=== PATIENT | male | born 1980 | race Caucasian/White ===

== ENCOUNTER 2021-10-24 11:29 | Outpatient (CLI) | payer OTHER, SELFPAY ==
--- NOTE | 2021-10-24 11:39 | RAD_ITS ---
STUDY: X-RAY CHEST REASON FOR EXAM: Male, 40 years old. Dyspnea TECHNIQUE: Single AP portable view of the chest. COMPARISON: None. FINDINGS: Mild prominence of the pulmonary vasculature. No focal infiltrate is seen. There is no demonstrated pleural abnormality. Mild to moderate enlargement of the cardiac silhouette. Normal mediastinum and brittny. Normal visualized pulmonary arteries. Normal visualized aortic arch and descending thoracic aorta. No demonstrated acute osseous changes. There is no demonstrated abnormality of the visualized soft tissue structures of the upper abdomen. RAD/Chest PA and Lateral IMPRESSION: Cardiomegaly and mild pulmonary venous congestion. Electronically Signed: Rashard Yanez, at 13:38 EST ,
[2021-10-24 12:30] LABS: Absolute Lymphocyte Count 2.54 X10^3/uL (0.83-4.51); Absolute Neutrophil Count 3.7 X10^3/uL (2.0-7.7); Basophil# 0.04 X10^3/uL; Basophil% 0.5 % (0-1); Eosinophil# 0.13 X10^3/uL; Eosinophils% 1.8 % (0-5); Hematocrit 49.7 % (40-54); Hemoglobin 16.9 g/dL (13.0-16.5); Lymphocyte # 2.54 X10^3/ul (0.83-4.51); Lymphocyte % 34.9 % (19-41); Mean Corpuscular Hgb 31.6 pg (27.0-32.0); Mean Corpuscular Volume 93.1 fL (80-94); Mean Platelet Vol. 10.5 fl (6.2-12.0); Monocyte# 0.84 X10^3/uL; Monocyte% 11.5 % (0-10); NRBC Flagged by Analyzer 0 % (0-5); Neutrophil # 3.69 X10^3/uL (2.7-7.7); Neutrophil % 50.8 % (47-70); Platelet Count 225 K/mm3 (150-450); RBC Distribution Width CV 13.1 % (11.6-14.6); RBC Distribution Width SD 44.9 fl (35.1-43.9); Red Blood Count 5.34 M/mm3 (4.6-6.2); White Blood Count 7.3 K/mm3 (4.4-11.0)
[2021-10-24 12:51] LABS: Hemoglobin A1c 5.8 % (3.8-5.6)
[2021-10-24 12:56] LABS: ALB/GLOB Ratio 0.9 RATIO (0.9-2.4); AST(SGOT) 55 U/L (15-37); Alanine Aminotransfer ALT/SGPT 102 U/L (16-61); Albumin, Serum 3.6 g/dL (3.2-5.0); Alkaline Phosphatase 56 U/L (45-117); Anion Gap 3 (5-15); BUN 16 mg/dL (7-18); Calcium,Total 9.2 mg/dL (8.5-10.1); Chloride 104 mmol/L (98-107); Cholesterol 227 mg/dL (200); EST Glomerular Filtration Rate 87 mL/min (>60); Est Glom Filt Rate - Afr Amer 105 mL/min (>60); Free T3 2.9 pg/mL (2.18-3.98); Globulin 3.8 g/dL (2.2-4.2); Glucose 92 mg/dL (74-106); High Density Lipoprotein 33 mg/dL; PSA,Total - Annual Screen 0.27 ng/mL (0.00-4.00); Protein, Total 7.4 g/dL (6.4-8.2); Sodium Level 137 mmol/L (136-145); T4 Free Direct 0.74 ng/dL (0.76-1.46); T4 Total, Thyroxin 5.5 ug/dL (4.5-12.1); Thyroid Stim Hormone (TSH) 2.77 uIU/mL (0.358-3.74); Triglycerides 273 mg/dL; Very Low Density Lipoprotein 55 mg/dL (5-40)
[2021-10-26 08:28] LABS: Vitamin B12 689 pg/mL (211-911); Vitamin D,25 Hydroxy 10.9 ng/mL
== END 2021-10-24 23:59 | disposition home or self-care (01) ==
LOC: RAD 11:34
PROVIDERS: PCP Nurse Practitioner Family; Referring Provider Nurse Practitioner Family; Visit Provider Nurse Practitioner Family
DX: R06.00 Dyspnea, unspecified (principal); E66.01 Morbid (severe) obesity due to excess calories; U09.9 Post COVID-19 condition, unspecified; R53.83 Other fatigue
CPT/HCPCS: 71046; 80053; 80061; 82306; 82607; 83036; 84153; 84436; 84439; 84443; 84481; 85025; G0103

== ENCOUNTER 2021-10-28 15:15 | Outpatient (REF) | payer OTHER, SELFPAY ==
[2021-10-28 16:28] LABS: Homocysteine 4.6 umol/L (3.2-10.7)
[2021-10-30 22:19] LABS: Thyroglobulin Antibody < 1.0 IU/mL (0.0-0.9); Thyroid Peroxidase AB < 8 IU/mL (0-34)
== END 2021-10-28 23:59 | disposition home or self-care (01) ==
LOC: LABSPEC 15:15
PROVIDERS: PCP Nurse Practitioner Family; Visit Provider Nurse Practitioner Family
DX: E03.9 Hypothyroidism, unspecified (principal)
CPT/HCPCS: 83090; 86376; 86800

== ENCOUNTER 2021-11-20 09:08 | Outpatient (CLI) | payer OTHER, SELFPAY ==
--- NOTE | 2021-11-20 09:10 | ECHOCS_ITS ---
Reason For Study: MURMUR Procedure This was a 2D Doppler, Color Flow transthoracic echocardiogram. The study was technically difficult. Due to body habitus. Contrast injection was performed. Exam performed in department. Left Ventricle Based upon the 2D echocardiographic and contrast enhanced images obtained there appears to be grossly normal left ventricular size, wall motion, and systolic function. The estimated ejection fraction is 55 %. Diastolic function is indeterminate. Right Ventricle Based upon the 2D echocardiographic images obtained there appears to be grossly normal right ventricular size and systolic function. Atria Grossly normal-appearing left atrium. Grossly normal-appearing right atrium. Normal atrial septum. Mitral Valve There is mild mitral annular calcification. Tension of the mitral annular calcification onto the base of the posterior mitral valve leaflet. Mild focal mitral valve calcification of the anterior leaflet. Trivial mitral valve insufficiency. Tricuspid Valve Normal tricuspid valve. Trivial tricuspid valve insufficiency. Unable to estimate RV systolic pressure/pulmonary artery pressure due to technically difficult study. Aortic Valve Based upon the 2D echocardiographic images obtained the aortic valve leaflets are not well visualized, however, there appears to be mild focal thickening and based upon the spectral Doppler information obtained there appears to be findings compatible with mild aortic valve stenosis. Pulmonic Valve The pulmonic valve is not well visualized. Great Vessels Normal sized aortic root. Pericardium/Pleural No pericardial effusion. Medication 22 gauge I.V. with prn adaptor inserted into right arm. Diluted definity 3.0ml given slow IV push to enhance endocardial definition. MMode/2D Measurements & Calculations LVOT diam: 2.3 cm Ao root diam: 3.1 cm LVOT area: 4.1 cm2 Time Measurements MV dec time: 0.16 sec Doppler Measurements & Calculations MV E max agustin: 80.0 cm/sec Lat Peak E' Agustin: 5.6 cm/sec Med Peak E' Agustin: 5.6 cm/sec MV A max agustin: 53.7 cm/sec E/E' lat: 14.3 E/E' med: 14.4 MV E/A: 1.5 Ao V2 max: 317.3 cm/sec LV V1 max: 106.5 cm/sec SV(LVOT): 97.4 ml Ao max P.6 mmHg LV V1 max P.5 mmHg Ao V2 mean: 198.0 cm/sec LV V1 mean P.2 mmHg Ao mean P.5 mmHg LV V1 mean: 69.6 cm/sec Ao V2 VTI: 55.0 cm LV V1 VTI: 23.6 cm LILLY(I,D): 1.8 cm2 LILLY(V,D): 1.4 cm2 PA V2 max: 78.6 cm/sec ECHO/Echo Complete W/ Contrast Interpretation Summary The study was technically difficult. Contrast injection was performed. Based upon the 2D echocardiographic and contrast enhanced images obtained there appears to be grossly normal left ventricular size, wall motion, and systolic function. The estimated ejection fraction is 55 %. There is mild mitral annular calcification. Tension of the mitral annular calcification onto the base of the posterior mitr al valve leaflet. Mild focal mitral valve calcification of the anterior leaflet. Trivial mitral valve insufficiency. Trivial tricuspid valve insufficiency. Based upon the 2D echocardiographic images obtained the aortic valve leaflets a re not well visualized, however, there appears to be mild focal thickening and based upon t he spectral Doppler information obtained there appears to be findings compatible with mild aortic v alve stenosis. Unable to estimate RV systolic pressure/pulmonary artery pressure due to techni [place] difficult study. Diastolic function is indeterminate. Ordering Physician: Hortensia Macedo Referring Physician: Hortensia Macedo Performed By: Nicole Rowland, PHIL, RVT
== END 2021-11-20 23:59 | disposition home or self-care (01) ==
LOC: CVS 09:09
PROVIDERS: PCP Nurse Practitioner Family; Referring Provider Nurse Practitioner Family; Visit Provider Nurse Practitioner Family
DX: R01.1 Cardiac murmur, unspecified (principal)
CPT/HCPCS: 93306; Q9957; A4216; C8929